=== PATIENT | female | born 1990 | race Caucasian/White ===

== ENCOUNTER 2017-01-27 07:00 | Day surgery (SDC) | payer OTHER ==
[~2017-01-27] VITALS: Ht 149.9 cm; Wt 39.9 kg
[2017-01-27] MEDS ORDERED: GLYCOPYRROLATE 0.2 MG/ML VIAL IV ONE (11:00)
[2017-01-27] MEDS ORDERED: NEOSTIGMINE 1:1000 10 MG/10 ML VIAL IM ONE (11:00)
[2017-01-27] MEDS ORDERED: ROCURONIUM 50 MG/5 ML VIAL IV ONE (11:00)
[2017-01-27] MEDS ORDERED: DEXAMETHASONE 4 MG/ML VIAL IVP ONE (11:00)
[2017-01-27] MEDS ORDERED: SEVOFLURANE 250 ML BTL INH ONE (11:00)
[2017-01-27] MEDS ORDERED: PROPOFOL 200 MG/20 ML VIAL IV ONE (11:00)
[2017-01-27] MEDS ORDERED: SUCCINYLCHOLINE CHLORIDE 200 MG/10 ML VIAL IV ONE (11:00)
[2017-01-27] MEDS ORDERED: ONDANSETRON 4 MG/2 ML VIAL IVP ONE (11:00)
[2017-01-27] MEDS ORDERED: MIDAZOLAM 2 MG/2 ML VIAL ONE (11:24)
[2017-01-27] MEDS ORDERED: fentaNYL 0.05 MG/ML VIAL ONE (11:24)
[2017-01-27] MEDS ORDERED: MEPERIDINE 50 MG/ML SYR ONE (11:25)
[2017-01-27] MEDS ORDERED: LACTATED RINGERS 1,000 ML IV SCH ×2 (11:44→13:39)
[2017-01-27] MEDS ORDERED: ONDANSETRON 4 MG/2 ML VIAL IVP PRN (11:45)
[2017-01-27] MEDS ORDERED: diphenhydrAMINE 50 MG/ML VIAL IVP PRN (11:45)
[2017-01-27] MEDS ORDERED: MEPERIDINE 25 MG/ML SYR IVP PRN (11:45)
[2017-01-27] MEDS ORDERED: HYDROmorphone 1 MG/ML AMP IVP PRN (11:45)
[2017-01-27] MEDS ORDERED: MORPHINE SULFATE 2 MG/ML SYR IVP PRN (13:40)
[2017-01-27] MEDS ORDERED: MEPERIDINE 25 MG/ML SYR ONE (13:50)
[2017-01-27] MEDS: HYDROmorphone PFS 2 MG/ML SYR ONE ×2 (13:57→14:07)
[2017-01-27] MEDS ORDERED: KETOROLAC 30 MG/ML VIAL IVP PRN (14:05)
[2017-01-27] MEDS ORDERED: IBUP-1842 PO (17:22)
[2017-01-27] MEDS ORDERED: CEPH250C16 PO (17:24)
== END 2017-01-27 18:35 | disposition home or self-care (01) ==
LOC: MDS 07:00 → MMU 07:01 → MTU 14:45 → MDS 18:35
PROVIDERS: ATTEND Obstetrics & Gynecology
DX: Z30.2 Encounter for sterilization (principal); Q87.0 Congenital malformation syndromes predominantly affecting facial appearance
CPT/HCPCS: 58600; 71010; 87081; 93005; J0330; J1100; J1170; J2175; J2250; J2405; J2704; J2710; J3010; J3490; J7120; Q0092